=== PATIENT | male | born 2000 | race Caucasian/White ===

== ENCOUNTER 2020-04-27 14:45 | Emergency (ER) | payer OTHER ==
[2020-04-27] MEDS ORDERED: HYDROmorphone 1 MG/ML Syringe IVPUSH ONE (15:02)
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
--- NOTE | 2020-04-27 16:18 | CR ---
[id number] RAD/RAD Ankle Right 2V; [id number] RAD/RAD Foot Right 2V Exam: RAD Foot Right 2V, RAD Ankle Right 2V Indication:POSSIBLE BROKEN ANKLE. Comparison: No prior imaging for comparison. Discussion/Impression: Acute fractures of the distal tibia and fibula. Distal tibial fracture involves the posterior and medial malleoli. Medial malleolus fracture is comminuted and displaced. Major fragment of the medial malleolus measures 13 x 12 mm. There is up to 12 mm of separation at the fracture site. Proximal fragment is displaced medial in relation to the distal fragment of malleolus, resulting in malalignment of the tibiotalar articulation. Lateral view demonstrates fracture of the posterior malleolus. Fracture fragment of the posterior malleolus is displaced superior 5 mm, resulting in 5 mm of step-off at the articular surface. There is widening of the anterior tibiotalar joint space of approximately 18 mm. Distal fibula fracture is centered in the distal metadiaphysis, demonstrating spiral morphology. There is slight apex medial angulation as well. Findings result in ankle mortise instability. Numerous radiopaque structures project over the foot. Most of these appear on the outside of the body. Largest projects over the plantar soft tissues of the forefoot between the fourth and fifth metacarpals. Location makes it difficult to determine if this is located within the soft tissues or outside of the body. Davide Eisenberg MD 04/27/20 [id number] Thank you for allowing us to participate in the care of your patient.
== END 2020-04-27 16:45 | disposition home or self-care (01) ==
LOC: KA.ED 14:45
DX: S82.851A Displaced trimalleolar fracture of right lower leg, initial encounter for closed fracture (principal); Z91.030 Bee allergy status; V29.9XXA Motorcycle rider (driver) (passenger) injured in unspecified traffic accident, initial encounter
CPT/HCPCS: 29515; 73600-RT; 73620-RT; 96374; 96375; 99283; 99283-25; J1170; J3360